=== PATIENT | female | born 1980 | race Caucasian/White ===

== ENCOUNTER → 2019-03-29 | Outpatient (CLI) | payer MEDICAID ==
[~2019-03-29] MED LIST: DEPO-PROVER150 MG/M1 IM; DILANTIN
== END ==
LOC: COL.CARD 03-15 13:00
DX: G40.909 Epilepsy, unspecified, not intractable, without status epilepticus (principal)

== ENCOUNTER → 2021-11-19 | Outpatient (CLI) | payer MEDICAID | LOC: MC.RAD 08:21 | DX: N60.02 Solitary cyst of left breast (principal); N63.15 Unspecified lump in the right breast, overlapping quadrants ==

== ENCOUNTER → 2023-08-09 | Outpatient (CLI) | payer MEDICAID | LOC: COL.RAD 07:35 | DX: S83.512A Sprain of anterior cruciate ligament of left knee, initial encounter (principal); M22.42 Chondromalacia patellae, left knee; M25.462 Effusion, left knee; M71.22 Synovial cyst of popliteal space [Baker], left knee; S82.142A Displaced bicondylar fracture of left tibia, initial encounter for closed fracture; X58.XXXA Exposure to other specified factors, initial encounter ==